=== PATIENT | female | born 1990 | race Caucasian/White ===

== ENCOUNTER 2024-01-06 09:53 | Day surgery (SDC) | payer BC, OTHER ==
[~2024-01-06 09:53] MED LIST: Sodium Chloride 0.9% 10 ML Syringe FLUSH PRN; Sodium Chloride 0.9% 2.5 ML Syringe FLUSH PRN; Sodium Chloride 0.9% 20 ML SDV IV PRN
[2024-01-06] MEDS: Lactated Ringers 1,000 ML IV SCH (11:13)
[2024-01-06] MEDS ORDERED: Propofol 200 MG/20 ML SDV ONE (11:25)
[2024-01-06] MEDS ORDERED: Midazolam 1 MG/ML 2 ML SDV ONE (11:25)
[2024-01-06] MEDS ORDERED: fentaNYL 100 MCG/2 ML SDV ONE (11:25)
== END 2024-01-06 13:18 | disposition home or self-care (01) ==
LOC: MW.SDS 09:53
PROVIDERS: ATTEND Surgery
DX: K29.50 Unspecified chronic gastritis without bleeding (principal); R10.13 Epigastric pain; Z88.8 Allergy status to other drugs, medicaments and biological substances; Z79.899 Other long term (current) drug therapy
CPT/HCPCS: 43239; J2250; J2704; J3010; J7120; 00731